=== PATIENT | female | born 1985 | race Caucasian/White ===

== ENCOUNTER 2018-05-27 16:38 | Emergency (ER) | payer OTHER ==
[2018-05-27] MEDS ORDERED: HALOPERIDOL LACT 5 MG/ML INJ IVP ONE (16:55)
[2018-05-27] MEDS ORDERED: NS 1,000 ML IV ONE ×2 (16:55→17:44)
--- NOTE | 2018-05-27 16:55 | EDPHY ---
H & P Time Seen by Provider: 05/27/18 16:43 HPI/ROS: CHIEF COMPLAINT: Nausea and vomiting since Sunday HISTORY OF PRESENT ILLNESS: Patient is had "nonstop vomiting" since last Sunday. She has had intermittent bouts of persistent vomiting for the last 5 years, was last emergency department earlier this year in the spring in [place]. They recently moved here from there. Since Sunday she has had multiple episodes of nausea and vomiting, not helped by her oral Zofran and Ativan and Phenergan. Symptoms are severe and associated with abdominal cramping. She says these are identical to the multiple episodes she has had over the past 5 years. No previous abdominal surgery. Worse with oral intake. Not associated with injury or trauma, hematemesis or coffee-ground emesis, diarrhea or melena. No recent foreign travel. REVIEW OF SYSTEMS: Eye: no change in vision ENT: no sore throat Cardiac: no chest pain or syncope Pulmonary: no cough or SOB Abdomen: HPI Musculoskeletal: no back pain Skin: no rash Neuro: no headache Constitutional: no fever : no urinary symptoms A comprehensive 10 point review of systems is otherwise negative aside from elements mentioned in the history of present illness. PAST MEDICAL HISTORY: Includes polycystic ovary and irritable bowel Social history: Recently moved here from [place], no local provider General Appearance: Alert and conversant, cooperative. Eyes: No scleral icterus. ENT, Mouth: Dry mucous membranes. Respiratory: Normal respiratory effort, breath sounds equal, lungs are clear to auscultation. Cardiovascular: Regular rate and rhythm. Gastrointestinal: Abdomen is soft and non tender. Neurological: Alert, face symmetric, normal motor and sensory in extremities. Skin: Warm and dry, no rashes. Musculoskeletal: No peripheral edema. Psychiatric: Not agitated. Reluctant to make eye contact. Emergency Department course/MDM: Plan for IV normal saline hydration, Haldol 2.5 and Benadryl 50 and Ativan 1 mg IV. Chem 8, labs sent. Including test. Patient states this is identical to multiple previous episodes, primary focus will be on treating her symptoms which is what she thinks is appropriate and I think that is reasonable. 1750: Feels better, no further vomiting, for IV fluid hydration and discharge which the patient is agreeable with. 183: Still no vomiting, plan for 3rd L IV normal saline to finished and then discharge. Smoking Status: Never smoked Constitutional: Initial Vital Signs Temperature (C) 37.0 C 05/27/18 16:41 Heart Rate 101 H 05/27/18 16:41 Respiratory Rate 20 05/27/18 16:41 Blood Pressure 131/105 H 05/27/18 16:41 O2 Sat (%) 96 05/27/18 16:41 O2 Delivery Mode Room Air Allergies/Adverse Reactions: Penicillins Allergy (Verified 05/27/18 16:44) Home Medications: Medication Instructions Recorded Clonazepam 05/27/18 LORazepam 05/27/18 Promethazine HCl 05/27/18 Tramadol HCl 05/27/18 Zofran 05/27/18 Medical Decision Making Differential Diagnosis: Differential considered including but not limited to irritable bowel, cyclic vomiting syndrome, bowel obstruction, gastroenteritis - Data Points Laboratory Results: Laboratory Results 05/27/18 16:55 05/27/18 16:55 05/27/18 05/27/18 05/27/18 16:55 16:55 16:55 WBC 12.66 10^3/uL H 10^3/uL (3.80-9.50) RBC 5.16 10^6/uL 10^6/uL (4.18-5.33) Hgb 16.7 g/dL H g/dL (12.6-16.3) Hct 47.3 % H % (38.0-47.0) MCV 91.7 fL fL (81.5-99.8) MCH 32.4 pg pg (27.9-34.1) MCHC 35.3 g/dL g/dL (32.4-36.7) RDW 12.4 % % (11.5-15.2) Plt Count 461 10^3/uL H 10^3/uL (150-400) MPV 10.2 fL fL (8.7-11.7) Neut % (Auto) 76.1 % H % (39.3-74.2) Lymph % (Auto) 14.3 % L % (15.0-45.0) Carver % (Auto) 8.2 % % (4.5-13.0) Eos % (Auto) 0.2 % L % (0.6-7.6) Baso % (Auto) 0.7 % % (0.3-1.7) Nucleat RBC Rel Count 0.0 % % (0.0-0.2) Absolute Neuts (auto) 9.63 10^3/uL H 10^3/uL (1.70-6.50) Absolute Lymphs (auto) 1.81 10^3/uL 10^3/uL (1.00-3.00) Absolute Monos (auto) 1.04 10^3/uL H 10^3/uL (0.30-0.80) Absolute Eos (auto) 0.03 10^3/uL 10^3/uL (0.03-0.40) Absolute Basos (auto) 0.09 10^3/uL 10^3/uL (0.02-0.10) Absolute Nucleated RBC 0.00 10^3/uL 10^3/uL (0-0.01) Immature Gran % 0.5 % % (0.0-1.1) Immature Gran # 0.06 10^3/uL 10^3/uL (0.00-0.10) Sodium 136 mEq/L mEq/L (135-145) Potassium 3.8 mEq/L mEq/L (3.3-5.0) Chloride 93 mEq/L L mEq/L (97-110) Carbon Dioxide 26 mEq/l mEq/l (22-31) Anion Gap 17 mEq/L H mEq/L (8-16) BUN 22 mg/dL mg/dL (7-23) Creatinine 0.9 mg/dL mg/dL (0.6-1.0) Estimated GFR > 60 Glucose 131 mg/dL H mg/dL (70-100) Calcium 10.4 mg/dL mg/dL (8.5-10.4) Beta HCG, Qual NEGATIVE Medications Given: Discontinued Medications Diphenhydramine HCl (Benadryl Injection) 25 mg IVP EDNOW ONE Stop: 05/27/18 16:56 Last Admin: 05/27/18 17:02 Dose: 25 mg Haloperidol Lactate (Haldol Injection) 2.5 mg IVP EDNOW ONE Stop: 05/27/18 16:56 Last Admin: 05/27/18 17:02 Dose: 2.5 mg Sodium Chloride (Ns) 1,000 mls @ 0 mls/hr IV EDNOW ONE; Wide Open PRN Reason: Protocol Stop: 05/27/18 16:56 Last Admin: 05/27/18 17:01 Dose: 1,000 mls Sodium Chloride (Ns) 1,000 mls @ 0 mls/hr IV EDNOW ONE; Wide Open PRN Reason: Protocol Stop: 05/27/18 17:45 Last Admin: 05/27/18 17:55 Dose: 1,000 mls Lorazepam (Ativan Injection) 1 mg IVP EDNOW ONE Stop: 05/27/18 16:57 Last Admin: 05/27/18 17:03 Dose: 1 mg Departure - Departure Disposition: Home, Routine, Self-Care Clinical Impression: Dehydration Nausea & vomiting Qualifiers: Vomiting type: unspecified Vomiting Intractability: non-intractable Qualified Code(s): R11.2 - Nausea with vomiting, unspecified Condition: Good Instructions: Acute Nausea and Vomiting (ED) Referrals: Nancy Porter MD [Medical Doctor] - As per Instructions Maximo Beatty MD [Medical Doctor] - As per Instructions
[2018-05-27] MEDS ORDERED: LORazepam 2 MG/ML INJ IVP ONE (16:56)
[2018-05-27 17:09] LABS: PLATELET COUNT 461 10^3/uL (150-400)
[2018-05-27 19:24] VITALS: BP 102/56
== END 2018-05-27 19:23 | disposition home or self-care (01) ==
DX: R11.2 Nausea with vomiting, unspecified (principal); E86.0 Dehydration; Z87.19 Personal history of other diseases of the digestive system
CPT/HCPCS: 96374; J1200; J1630; J2060